=== PATIENT | female | born 1970 | race American Indian/Alaskan Native ===

== ENCOUNTER 2018-11-15 13:38 | Outpatient (CLI) | payer OTHER | END 2018-11-15 13:40 | disposition home or self-care (01) | LOC: MAMO-SONO 13:38 | DX: N64.3 Galactorrhea not associated with childbirth (principal) ==

== ENCOUNTER 2020-03-25 10:17 | Outpatient (CLI) | payer OTHER | END 2020-03-25 10:28 | disposition home or self-care (01) | LOC: MAMO-SONO 10:17 | PROVIDERS: ATTEND Obstetrics & Gynecology | DX: Z12.31 Encounter for screening mammogram for malignant neoplasm of breast (principal); N60.11 Diffuse cystic mastopathy of right breast; N60.12 Diffuse cystic mastopathy of left breast ==

== ENCOUNTER 2021-04-07 09:15 | Outpatient (CLI) | payer OTHER | END 2021-04-07 09:23 | disposition home or self-care (01) | LOC: MAMO-SONO 09:15 | PROVIDERS: ATTEND Surgery Pediatric Surgery | DX: E04.2 Nontoxic multinodular goiter (principal); N64.4 Mastodynia; R10.2 Pelvic and perineal pain; Z12.31 Encounter for screening mammogram for malignant neoplasm of breast ==

== ENCOUNTER 2022-04-11 12:39 | Outpatient (CLI) | payer OTHER | END 2022-04-11 12:50 | disposition home or self-care (01) | LOC: MAMO-SONO 12:39 | PROVIDERS: ATTEND Surgery Pediatric Surgery | DX: Z12.31 Encounter for screening mammogram for malignant neoplasm of breast (principal); N64.4 Mastodynia; R92.2 Inconclusive mammogram ==

== ENCOUNTER 2022-04-24 15:02 | Outpatient (CLI) | payer OTHER | END 2022-04-24 15:13 | disposition home or self-care (01) | LOC: SONOGRAMA 15:02 | PROVIDERS: ATTEND Surgery Pediatric Surgery | DX: E04.2 Nontoxic multinodular goiter (principal); C56.9 Malignant neoplasm of unspecified ovary ==

== ENCOUNTER 2023-11-20 09:16 | Outpatient (CLI) | payer OTHER | END 2023-11-20 09:23 | disposition home or self-care (01) | LOC: MAMO-SONO 09:16 | PROVIDERS: ATTEND Surgery Pediatric Surgery | DX: R92.2 Inconclusive mammogram (principal); N64.4 Mastodynia; R10.30 Lower abdominal pain, unspecified; C56.9 Malignant neoplasm of unspecified ovary; E04.2 Nontoxic multinodular goiter ==

== ENCOUNTER 2023-11-28 09:43 | Outpatient (CLI) | payer OTHER | END 2023-11-28 09:45 | disposition home or self-care (01) | LOC: NUCLEAR 09:43 | PROVIDERS: ATTEND Surgery Pediatric Surgery | DX: I83.10 Varicose veins of unspecified lower extremity with inflammation (principal); I83.819 Varicose veins of unspecified lower extremity with pain ==

== ENCOUNTER 2024-07-23 09:00 | Outpatient (CLI) | payer OTHER | END 2024-07-23 09:14 | disposition home or self-care (01) | LOC: TOM 09:00 | PROVIDERS: ATTEND Surgery Pediatric Surgery | DX: C44.40 Unspecified malignant neoplasm of skin of scalp and neck (principal) ==